=== PATIENT | female | born 1975 | race Caucasian/White ===

== ENCOUNTER → 2021-03-26 | Outpatient (CLI) | payer OTHER ==
--- NOTE | 2021-03-26 13:04 | RAD ---
STUDY: MRI of the left knee without contrast INDICATION: Left knee pain. COMPARISON: Left knee radiographs 03/21/2021 TECHNIQUE: Multiplanar MR imaging of the left knee performed without the use of intravenous or intra- articular contrast. FINDINGS: Menisci: The medial and lateral menisci are intact. Cruciate ligaments: Intact ACL and PCL. Collateral ligaments: Unremarkable medial collateral ligament complex. Several calcifications seen la teral and posterior to the fibular collateral ligament the largest of which on image 12 series 5 yesi ures up to 1 cm AP. The fibular collateral ligament itself is intact. No discrete mineralization with in the popliteus or biceps femoris tendons. Surrounding edema which extends to involve the popliteal fossa and deep to the lateral retinaculum. Edema and fluid signal extending downward lateral to the t ibia and fibula. Tendons: Intact. Cartilage: Patellofemoral: Chondral fissuring such as along the patellar median ridge and trochlear groove. Lateral compartment: No high-grade or full-thickness chondrosis. Medial compartment: Chondral thinning at the weightbearing aspect of the joint. Bones: Marrow signal is within normal limits. Miscellaneous: Small knee joint effusion. Tiny Regalado's cyst. Small amount of fluid within the deep in frapatellar bursa. IMPRESSION: 1. Several foci of mineralization centered lateral and posterior to the fibular collateral ligament in part at the expected location of the LCL-biceps femoris bursa. Surrounding edema and some tracking fluid signal. The adjacent tendons and ligaments are intact. The leading consideration is hydroxyapa tite deposition resulting in regional inflammation. Calcium pyrophosphate deposition is felt less lik frances as is gout. Ligamentous/periligamentous calcification can be seen from prior trauma but does not explain the active inflammation. 2. Scattered chondrosis to include fissuring at the patellar median ridge and trochlear groove. No l arge full-thickness defect. The menisci and cruciate ligaments are intact. 3. Small knee joint effusion. Electronically signed by: SOREN LANG MD (03/26/2021 1:02 PM) [id number]
== END ==
LOC: MRI 10:14
PROVIDERS: ATTEND Family Medicine
DX: M25.462 Effusion, left knee (principal)
CPT/HCPCS: 73721